=== PATIENT | male | born 1965 | race Caucasian/White ===

== ENCOUNTER 2017-06-03 16:13 | Observation (INO) | payer OTHER ==
[2017-06-03 18:54] VITALS: RESP 18
[2017-06-03] MEDS ORDERED: SODIUM CHLORIDE 0.9% 1,000 ML IV SCH (19:45)
--- NOTE | 2017-06-03 20:52 | CT ---
EXAMINATION TYPE: CT brain wo con DATE OF EXAM: 06/03/2017 COMPARISON: NONE HISTORY: LUMP TO POSTERIOR HEAD AREA. CT DLP: 991.[address] of the brain was performed. The ventricles, basal cisterns and sulci overlying the cerebral convexities demonstrate mild enlargem ent. There is no evidence for intracranial hemorrhage or sulcal effacement. There is decreased attenuation about the periventricular white matter and deep white matter of both c erebral hemispheres, compatible with chronic small vessel ischemia. Differential diagnosis does inclu de demyelination. No mass effects are seen.No midline shift. Osseous calvarium is intact. Small nodule of to the left of midline occipital region measures approx imately 7 mm and may reflect a small lymph node. Prominent fat posterior neck could reflect lipoma. If symptoms persist consider MRI. IMPRESSION: 1. Age related atrophic and chronic small vessel ischemic change without acute intracranial process s een at this time.
[2017-06-03 20:58] LABS: Anion Gap 10 mmol/L; Blood Urea Nitrogen 19 mg/dL (9-20); Carbon Dioxide 28 mmol/L (22-30); Chloride 105 mmol/L (98-107); Glucose 88 mg/dL (74-99); Non-African American GFR(MDRD) >60 (>60 ml/min/1.73 sqM); Potassium 4.4 mmol/L (3.5-5.1); Sodium 143 mmol/L (137-145)
[2017-06-03 21:08] LABS: Basophils # (A) 0.1 k/uL (0-0.2); Basophils % (A) 1 %; CH 32.6; CHCM 34.4; Eosinophils # (A) 0.1 k/uL (0-0.7); Eosinophils % (A) 1 %; HCT 44.4 % (39.0-53.0); HDW 2.75; HGB 15.2 gm/dL (13.0-17.5); Luc # (Auto) 0.19; Luc % (Auto) 2; Lymphocytes # (A) 2.3 k/uL (1.0-4.8); Lymphocytes % (A) 23 %; MCH 32.6 pg (25.0-35.0); MCHC 34.2 g/dL (31.0-37.0); MCV 95.2 fL (80.0-100.0); Mean Platelet Volume 7.1; Monocytes # (A) 0.6 k/uL (0-1.0); Monocytes % (A) 6 %; Neutrophils # (A) 6.7 k/uL (1.3-7.7); Neutrophils % (A) 67 %; RBC 4.67 m/uL (4.30-5.90); RDW 13.1 % (11.5-15.5); WBC (Perox) 9.81
[2017-06-03] MEDS ORDERED: ALPRAZolam 0.5 MG TAB PO PRN (22:00)
[2017-06-03] MEDS ORDERED: HYDROcodone/APAP 10-325MG 1 EACH TAB PO PRN (22:00)
[2017-06-03] MEDS ORDERED: TRIAMCINOLONE 0.1% CREAM 80 GM TUBE TOPICAL PRN (22:18)
[2017-06-04 05:50] VITALS: BMI 40.2
[2017-06-04] MEDS ORDERED: LEVOTHYROXINE 100 MCG TAB PO SCH (07:30)
[2017-06-04 07:36] VITALS: BP 102/65; PULSE 63; TEMP 98.7
--- NOTE | 2017-06-04 07:45 | XR ---
EXAMINATION TYPE: XR chest 2V DATE OF EXAM: 06/03/2017 COMPARISON: NONE HISTORY: Shortness of breath TECHNIQUE: Frontal and lateral views of the chest are obtained. FINDINGS: Scattered senescent parenchymal changes noted. Hyperinflation compatible with COPD. No evidence for infiltrate. No evidence for atelectasis. Heart size is stable. Mediastinal structures are stable and grossly unremarkable. No evidence for hilar prominence. Degenerative changes dorsal spine. IMPRESSION: 1. No evidence for acute pulmonary disease.
[2017-06-04] MEDS ORDERED: ATENOLOL 25 MG TAB PO SCH (09:00)
[2017-06-04] MEDS ORDERED: valACYclovir 500 MG TAB PO SCH (09:00)
--- NOTE | 2017-06-04 10:53 | P.DS ---
Providers Date of admission: 06/03/17 18:40 Expected date of discharge: 06/04/17 Attending physician: Sumeet Nazario Consults: 06/03/17 19:46 Consult Physician Routine Consulting Provider: Estefania Jung Consult Reason/Comments: near syncope Do you want consulting provider notified?: Yes Primary care physician: [facility] Course: 52-year-old male who was directly admitted from Dr. Nazario's office on 06/03/2017. The patient states he was seen in Dr. Nazario's office and had a vague chief complaint of "just not feeling right". The patient states he was feeling slightly dizzy but did not experience syncope. He has a history of thyroid cancer and had his thyroid removed 18 months ago. He states his symptoms felt similar to when the date 18 months ago when he had thyroid cancer and wanted to get checked out. He also has a history of hypertension. A CAT scan of the brain was completed due to the patient complaining of a bump on the posterior aspect of his head. The results indicated age-related atrophic and chronic small vessel ischemic changes without acute intracranial process. A chest x-ray was completed which was unremarkable. A d-dimer was completed and was negative. It was noted in the computer that the patient's heart rate has been running in the 40s most of his hospital stay. Patient is currently sinus rhythm in the 60s and 70s per cardiac monitor. Patient has been prescribed atenolol 25 mg twice a day. Discussed this with Dr. Nazario who states to cut the patient's dose in half and to follow-up with him outpatient. DISCHARGE DIAGNOSIS: 1. History of essential hypertension 2. History of thyroid cancer with thyroidectomy 3. Dizziness, present on admission, unknown etiology, resolved. Patient to follow-up with Dr. Nazario outpatient 4. Degenerative Disc disease, chronic 5. Bradycardia, suspect due to beta-blockers. Will decrease dose of atenolol. The above impression and plan of care have been discussed and directed by signing physician. Vivian Silva, nurse practitioner, acting as scribe for signing physician. Patient Condition at Discharge: Stable Plan - Discharge Summary New Discharge Prescriptions: New Atenolol [Tenormin] 12.5 mg PO BID #60 dose Triamcinolone 0.1% Cream [Kenalog] 1 applic TOPICAL TID PRN #1 tube PRN Reason: Moderate To Severe Itching Continue Hydrocodone/Acetaminophen [Hydrocodone/Acetaminophen 10-325] 1 tab PO Q4-6H PRN PRN Reason: Pain ALPRAZolam 1 mg PO BID PRN PRN Reason: Anxiety valACYclovir HCL [Valtrex] 500 mg PO DAILY Levothyroxine Sodium [Synthroid] 200 mcg PO DAILY Discontinued Atenolol [Tenormin] 25 mg PO BID Discharge Medication List ALPRAZolam 1 mg PO BID PRN 02/27/14 [History] Hydrocodone/Acetaminophen [Hydrocodone/Acetaminophen 10-325] 1 tab PO Q4-6H PRN 02/27/14 [History] valACYclovir HCL [Valtrex] 500 mg PO DAILY 02/27/14 [History] Levothyroxine Sodium [Synthroid] 200 mcg PO DAILY 06/03/17 [History] Atenolol [Tenormin] 12.5 mg PO BID #60 dose 06/04/17 [Rx] Triamcinolone 0.1% Cream [Kenalog] 1 applic TOPICAL TID PRN #1 tube 06/04/17 [Rx ] Follow up Appointment(s)/Referral(s): Sumeet Nazario MD [Primary Care Provider] - 06/07/17 Discharge Disposition: HOME SELF-CARE
== END 2017-06-04 11:25 | disposition home or self-care (01) ==
LOC: 3OBS 18:40
PROVIDERS: ADMIT Family Medicine; ATTEND Family Medicine
DX: R42 Dizziness and giddiness (principal); R00.1 Bradycardia, unspecified; I10 Essential (primary) hypertension; R22.0 Localized swelling, mass and lump, head; Z85.850 Personal history of malignant neoplasm of thyroid
CPT/HCPCS: 85379; 84439; 84481; 80048; 84443; 84484; 85025; 71020; 70450; G0378 ×2; G0379

== ENCOUNTER → 2019-01-12 | Outpatient (CLI) | payer OTHER ==
--- NOTE | 2019-01-12 16:37 | XR ---
EXAMINATION TYPE: XR chest 2V DATE OF EXAM: 01/12/2019 COMPARISON: Prior chest x-ray 06/03/2017 HISTORY: Bronchospasm TECHNIQUE: Frontal and lateral views of the chest are obtained. FINDINGS: There are overlying cardiac leads. There is no focal air space opacity, pleural effusion, o r pneumothorax seen. The cardiac silhouette size is within normal limits. The osseous structures a re intact. Flowing anterior osteophytes with relative preservation of disc space in the thoracic spin e compatible with diffuse idiopathic skeletal hyperostosis. IMPRESSION: No acute cardiopulmonary process.
== END | disposition home or self-care (01) ==
LOC: RADXRMAIN 14:29
PROVIDERS: ATTEND Family Medicine
DX: J98.01 Acute bronchospasm (principal)
CPT/HCPCS: 71046

== ENCOUNTER → 2020-08-01 | Outpatient (CLI) | payer OTHER ==
[2020-08-01 15:54] LABS: Basophils # (A) 0.1 k/uL (0-0.2); Basophils % (A) 1 %; Eosinophils # (A) 0.2 k/uL (0-0.7); Eosinophils % (A) 2 %; HCT 46.7 % (39.0-53.0); HGB 15.2 gm/dL (13.0-17.5); Lymphocytes # (A) 1.6 k/uL (1.0-4.8); Lymphocytes % (A) 23 %; MCH 31.4 pg (25.0-35.0); MCHC 32.5 g/dL (31.0-37.0); MCV 96.5 fL (80.0-100.0); Mean Platelet Volume 7.2; Monocytes # (A) 0.4 k/uL (0-1.0); Monocytes % (A) 5 %; Neutrophils # (A) 4.6 k/uL (1.3-7.7); Neutrophils % (A) 67 %; Platelet Count 262 k/uL (150-450); RBC 4.84 m/uL (4.30-5.90); RDW 13.1 % (11.5-15.5); WBC 6.9 k/uL (3.8-10.6)
[2020-08-02 01:06] LABS: African American GFR (CKD) 88.4 (60.0-200.0); Albumin 4.3 g/dL (3.80-4.90); Albumin/Globulin Ratio 1.87 (1.60-3.17); Anion Gap 8.2 mmol/L (4.00-12.00); BUN/Creat Ratio 16.36 Ratio (12.00-20.00); Calcium 8.9 mg/dL (8.7-10.3); Carbon Dioxide 25.8 mmol/L (21.6-31.8); Globulin 2.3 g/dL (1.6-3.3); Non-African American GFR(CKD) 76.2 (60.0-200.0); Potassium 4.4 mmol/L (3.5-5.5); Total Bilirubin 0.6 mg/dL (0.2-1.2); Total Protein 6.6 g/dL (6.2-8.2)
[2020-08-02 01:34] LABS: Hepatitis A Antibody IgM Non-Reactive (Non-Reactive); Hepatitis B Core IgM Non-Reactive (Non-Reactive); Hepatitis B Surface Antigen Non-Reactive (Non-Reactive); Hepatitis C IgG Antibody Non-Reactive (Non-Reactive)
[2020-08-02 07:19] LABS: HIV 2 AB Non-Reactive (Non-Reactive); HIV AB P24 Non-Reactive (Non-Reactive); HIV P24 AG Non-Reactive (Non-Reactive)
== END | disposition home or self-care (01) ==
LOC: LABWHC1 14:48
PROVIDERS: ATTEND Physician Assistant
DX: L40.8 Other psoriasis (principal); K76.9 Liver disease, unspecified; Z11.4 Encounter for screening for human immunodeficiency virus [HIV]; Z11.1 Encounter for screening for respiratory tuberculosis; Z79.899 Other long term (current) drug therapy
CPT/HCPCS: 36415; 80053; 80074; 85025; 86480; 87390

== ENCOUNTER 2020-12-26 08:49 | Day surgery (SDC) | payer OTHER ==
[2020-12-24 14:39] VITALS: BMI 38.0
[~2020-12-26 08:49] MED LIST: LACTATED RINGERS 1,000 ML IV SCH
[2020-12-26 09:41] VITALS: RESP 16; TEMP 97.4
[2020-12-26] MEDS ORDERED: LIDOCAINE 1% (10MG/ML) FOR IV START INTRADERMA ONE (09:45)
[2020-12-26] MEDS ORDERED: PROPOFOL 10 MG/ML 20 ML VIAL IV ONE (10:14)
--- NOTE | 2020-12-26 10:21 | P.GSHP ---
History of Present Illness H&P Date: 12/26/20 Chief Complaint: Screening colonoscopy Is a 55-year-old male presents today for screening colonoscopy. Patient denies a significant GI complaints. Past Medical History Past Medical History: Cancer, Chest Pain / Angina, Hypertension, Skin Disorder, Sleep Apnea/CPAP/BIPAP, Thyroid Disorder Additional Past Medical History / Comment(s): GOUT, GENITAL HERPES, HAND TREMORS, LOWER BACK PAIN, DDD/bulging disks-back and neck; rashes; Peripheral Neuropathy. NO CPAP USED, graves disease, hx thyroid cancer, PSORIASIS History of Any Multi-Drug Resistant Organisms: None Reported Past Surgical History: Orthopedic Surgery Additional Past Surgical History / Comment(s): LT HAND MIDDLE FINGER , RT ANKLE , RT KNEE ARTHROSCOPY; LT THYROIDECTOMY, right thyroidectomy, Past Anesthesia/Blood Transfusion Reactions: Family History of Problems w/ Anesthesia, Motion Sickness, Postoperative Nausea & Vomiting (PONV) Additional Past Anesthesia/Blood Transfusion Reaction / Comment(s): PT HAS SEVERE PONV, "pounding headache"; BROTHER - PONV, had neck pain for "days" after last surgery Smoking Status: Never smoker - Past Family History Brother(s) Family Medical History: Myocardial Infarction ([place]) Medications and Allergies Home Medications Medication Instructions Recorded Confirmed Type ALPRAZolam 1 mg PO BID PRN 02/27/14 12/26/20 History Hydrocodone/Acetaminophen 1 tab PO BID 02/27/14 12/26/20 History [Hydrocodone/Acetaminophen 10-325] valACYclovir HCL [Valtrex] 500 mg PO DAILY 02/27/14 12/26/20 History Allopurinol [Zyloprim] 100 mg PO DAILY 12/24/20 12/26/20 History Levothyroxine Sodium [Synthroid] 175 mcg PO DAILY 12/24/20 12/26/20 History Metoprolol Tartrate [Lopressor] 25 mg PO BID 12/24/20 12/26/20 History Allergies Allergy/AdvReac Type Severity Reaction Status Date / Time No Known Allergies Allergy Verified 12/24/20 14:26 Surgical - Exam Vital Signs Temp Pulse Resp BP Pulse Ox 97.4 F L 90 16 145/85 97 12/26/20 09:35 12/26/20 09:35 12/26/20 09:35 12/26/20 09:35 12/26/20 09:35 - General well developed, well nourished, no distress - Eyes PERRL - ENT normal pinna - Neck no masses - Respiratory normal expansion - Cardiovascular Rhythm: regular - Abdomen Abdomen: soft, non tender Assessment and Plan Assessment: We'll perform screening colonoscopy
--- NOTE | 2020-12-26 10:45 | P.OP ---
Date of Procedure: 12/26/20 Preoperative Diagnosis: Screening colonoscopy Postoperative Diagnosis: Colon polyp Procedure(s) Performed: Colonoscopy Anesthesia: MAC Surgeon: Rashel Freedman Pathology: other (Colon polyps) Condition: stable Disposition: PACU Description of Procedure: The patient's placed on the endoscopy table in the lateral position. He received IV sedation. Digital rectal exam was performed which revealed no abnormalities. Flexible colonoscope was then placed patient anus passed throughout the entire colon. The ileocecal valve was visualized. In the cecum there was a small sessile polyp was removed the forcep. The scope was then brought back the remainder ascending colon appeared normal. The transverse colon was a large plug the polyp which was incompletely removed with snare. The area was tattooed. The scope was withdrawn the remainder of the transverse colon appeared normal. The descending colon and; appeared normal. Scope was brought back the rectum was normal. Scope was withdrawn for patient.
[2020-12-26] MEDS ORDERED: ONDANSETRON 4 MG/2 ML VIAL IVP ONE (10:47)
[2020-12-26] MEDS ORDERED: ONDANSETRON 4 MG/2 ML VIAL ONE (10:50)
[2020-12-26] MEDS ORDERED: LABETALOL 5 MG/ML VIAL MDV IVP ONE (11:29)
[2020-12-26 11:44] VITALS: PULSE 65
[2020-12-26 11:51] VITALS: BP 133/79
== END 2020-12-26 11:59 | disposition home or self-care (01) ==
LOC: ORWHC2ENDO 08:49
PROVIDERS: ATTEND Surgery
DX: Z12.11 Encounter for screening for malignant neoplasm of colon (principal); D12.0 Benign neoplasm of cecum; D12.3 Benign neoplasm of transverse colon; I10 Essential (primary) hypertension; E05.00 Thyrotoxicosis with diffuse goiter without thyrotoxic crisis or storm; G47.30 Sleep apnea, unspecified; Z79.890 Hormone replacement therapy; Z79.899 Other long term (current) drug therapy; Z82.49 Family history of ischemic heart disease and other diseases of the circulatory system; Z85.850 Personal history of malignant neoplasm of thyroid
CPT/HCPCS: 88305; 45380; 45385; 45381; J2405; J2704

== ENCOUNTER 2021-02-14 07:56 | Day surgery (SDC) | payer OTHER ==
[2021-02-12 14:45] VITALS: BMI 41.2
[2021-02-14] MEDS ORDERED: ONDANSETRON 4 MG/2 ML VIAL ONE (08:17)
[2021-02-14 08:22] VITALS: RESP 16; TEMP 97.2
[2021-02-14] MEDS ORDERED: LIDOCAINE 1% (10MG/ML) FOR IV START INTRADERMA ONE (08:26)
[2021-02-14] MEDS ORDERED: PROPOFOL 10 MG/ML 20 ML VIAL IV ONE (09:11)
[2021-02-14] MEDS ORDERED: GLUCAGON 1 MG/ML VIAL ONE (09:11)
--- NOTE | 2021-02-14 09:12 | P.GSHP ---
History of Present Illness H&P Date: 02/14/21 Chief Complaint: History of colon polyp This a 56-year-old male who presents today for colonoscopy. Patient's previous history of colon polyps. Past Medical History Past Medical History: Cancer, Chest Pain / Angina, Hypertension, Skin Disorder, Sleep Apnea/CPAP/BIPAP, Thyroid Disorder Additional Past Medical History / Comment(s): GOUT, GENITAL HERPES, HAND TREMORS, LOWER BACK PAIN, DDD/bulging disks-back and neck; rashes; Peripheral Neuropathy. NO CPAP USED, graves disease, hx thyroid cancer, PSORIASIS History of Any Multi-Drug Resistant Organisms: None Reported Past Surgical History: Orthopedic Surgery Additional Past Surgical History / Comment(s): LT HAND MIDDLE FINGER , RT ANKLE , RT KNEE ARTHROSCOPY; LT THYROIDECTOMY, right thyroidectomy, colonoscopy Past Anesthesia/Blood Transfusion Reactions: Family History of Problems w/ Anesthesia, Motion Sickness, Postoperative Nausea & Vomiting (PONV) Additional Past Anesthesia/Blood Transfusion Reaction / Comment(s): after last colonoscopy on 12-26-20 had low b/p post op.PT HAS SEVERE PONV, "pounding headache"; BROTHER - PONV, had neck pain for "days" after last surgery Smoking Status: Never smoker - Past Family History Brother(s) Family Medical History: Myocardial Infarction ([place]) Medications and Allergies Home Medications Medication Instructions Recorded Confirmed Type ALPRAZolam 1 mg PO BID PRN 02/27/14 02/14/21 History Hydrocodone/Acetaminophen 1 tab PO BID 02/27/14 02/14/21 History [Hydrocodone/Acetaminophen 10-325] valACYclovir HCL [Valtrex] 500 mg PO DAILY 02/27/14 02/14/21 History Allopurinol [Zyloprim] 100 mg PO DAILY 12/24/20 02/14/21 History Levothyroxine Sodium [Synthroid] 175 mcg PO DAILY 12/24/20 02/14/21 History Metoprolol Tartrate [Lopressor] 25 mg PO BID 12/24/20 02/14/21 History Risankizumab-Rzaa [Skyrizi] 75 mg SQ ONCE 02/12/21 02/14/21 History Allergies Allergy/AdvReac Type Severity Reaction Status Date / Time No Known Allergies Allergy Verified 02/12/21 14:36 Surgical - Exam Vital Signs Temp Resp BP Pulse Ox 97.2 F L 16 188/102 97 05/07/21 08:14 02/14/21 08:14 02/14/21 08:14 02/14/21 08:14 - General well developed, well nourished, no distress - Eyes PERRL - ENT normal pinna - Neck no masses - Respiratory normal expansion - Cardiovascular Rhythm: regular - Abdomen Abdomen: soft, non tender Assessment and Plan Assessment: History of colon polyps. We'll perform colonoscopy
[2021-02-14 09:40] VITALS: BP 116/84; PULSE 90
--- NOTE | 2021-02-14 09:40 | P.OP ---
Date of Procedure: 02/14/21 Preoperative Diagnosis: History of colon polyps Postoperative Diagnosis: Multiple colon polyps Procedure(s) Performed: Colonoscopy Anesthesia: MAC Surgeon: Rashel Freedman Pathology: other (Rectal polyp, sigmoid colon polyp, transverse colon polyp) Condition: stable Disposition: PACU Description of Procedure: The patient's placed on the endoscopy table in the lateral position. He received IV sedation. Digital rectal exam was performed. There were no abnormalities noted. The prostate was symmetric without nodules. The flexible colonoscope was then placed patient anus and passed throughout the entire colon. The ileocecal valve was visualized. The cecum appeared normal. In the transverse colon there was evidence of previous tattoo. It was a polyp seen this is removed completely with snare. Scope was withdrawn and the remainder the transverse colon and descending colon appeared normal. In the sigmoid colon small polyp seen this removed with the cold forcep. Scope was brought back the rectum another polyp seen this removed with snare. Patient top she will was sent to recovery room in this.
== END 2021-02-14 10:16 | disposition home or self-care (01) ==
LOC: ORWHC2ENDO 07:56
PROVIDERS: ATTEND Surgery
DX: Z12.11 Encounter for screening for malignant neoplasm of colon (principal); D12.3 Benign neoplasm of transverse colon; K63.5 Polyp of colon; Z86.010 Personal history of colon polyps; I10 Essential (primary) hypertension; E07.9 Disorder of thyroid, unspecified; Z79.899 Other long term (current) drug therapy; G47.33 Obstructive sleep apnea (adult) (pediatric); M10.9 Gout, unspecified; R25.1 Tremor, unspecified; L40.9 Psoriasis, unspecified; G62.9 Polyneuropathy, unspecified; E05.00 Thyrotoxicosis with diffuse goiter without thyrotoxic crisis or storm; E89.0 Postprocedural hypothyroidism; Z98.890 Other specified postprocedural states; M54.5 Low back pain; M50.30 Other cervical disc degeneration, unspecified cervical region; M50.20 Other cervical disc displacement, unspecified cervical region; Z82.49 Family history of ischemic heart disease and other diseases of the circulatory system; Z86.19 Personal history of other infectious and parasitic diseases; Z79.890 Hormone replacement therapy
CPT/HCPCS: 88305; 45380; 45385; J1610; J2405; J2704

== ENCOUNTER 2022-02-18 16:16 | Emergency (ER) | payer OTHER ==
[2022-02-18 16:40] VITALS: RESP 16; TEMP 98.1
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
[2022-02-18 17:50] LABS: Basophils # (A) 0.1 k/uL (0-0.2); Basophils % (A) 1 %; Eosinophils # (A) 0.3 k/uL (0-0.7); Eosinophils % (A) 4 %; HCT 43.8 % (39.0-53.0); HGB 13.9 gm/dL (13.0-17.5); Lymphocytes % (A) 11 %; MCH 31.2 pg (25.0-35.0); MCHC 31.7 g/dL (31.0-37.0); MCV 98.4 fL (80.0-100.0); Mean Platelet Volume 7.8; Monocytes # (A) 0.5 k/uL (0-1.0); Monocytes % (A) 5 %; Neutrophils # (A) 7.5 k/uL (1.3-7.7); Neutrophils % (A) 78 %; Platelet Count 264 k/uL (150-450); RBC 4.45 m/uL (4.30-5.90); RDW 13.9 % (11.5-15.5); WBC 9.5 k/uL (3.8-10.6)
[2022-02-18 17:58] LABS: Partial Thromboplastin Time 24.7 sec (22.0-30.0); Prothrombin Time 10.8 sec (9.0-12.0)
[2022-02-18 18:00] LABS: ALT 31 U/L (4-49); AST 36 U/L (17-59); African American GFR (CKD) >90 (>60 ml/min/1.73 sqM); Alcohol <10 mg/dL; Alkaline Phosphatase 45 U/L (38-126); Anion Gap 7 mmol/L; Blood Urea Nitrogen 20 mg/dL (9-20); Calcium 8.7 mg/dL (8.4-10.2); Carbon Dioxide 25 mmol/L (22-30); Chloride 111 mmol/L (98-107); Glucose 99 mg/dL (74-99); Non-African American GFR(CKD) 84 (>60 ml/min/1.73 sqM); Potassium 4.9 mmol/L (3.5-5.1); Sodium 143 mmol/L (137-145); Total Bilirubin 0.5 mg/dL (0.2-1.3); Total Protein 6.4 g/dL (6.3-8.2)
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
[2022-02-18 20:57] VITALS: BP 124/82; PULSE 53
== END 2022-02-18 20:57 | disposition home or self-care (01) ==
LOC: EC 16:16
DX: F11.10 Opioid abuse, uncomplicated (principal); I10 Essential (primary) hypertension; E07.9 Disorder of thyroid, unspecified; Z79.1 Long term (current) use of non-steroidal anti-inflammatories (NSAID); Z82.49 Family history of ischemic heart disease and other diseases of the circulatory system; V89.2XXA Person injured in unspecified motor-vehicle accident, traffic, initial encounter
CPT/HCPCS: 36415; 93005; 86900; 86901; 80053; 84484; 85025; 85610; 85730; 86850; 72170; 71045; 99285; G0480; 80320

== ENCOUNTER → 2022-03-19 | Outpatient (CLI) | payer OTHER ==
--- NOTE | 2022-03-20 16:49 | US ---
EXAMINATION TYPE: US thyroid st tissue head/neck DATE OF EXAM: 03/19/2022 COMPARISON: CT CLINICAL HISTORY: C73 Thyroid Cancer. Hx thyroid cancer. Thyroidectomy. Scanned patient's thyroid bed. Indistinct, hypoechoic area seen in the area of the left thyroid bed measuring 0.9 x 0.6 x 0.4 cm. Bilateral neck scanned, Hypoechoic area seen midline neck: 1.3 x 0.8 x 0.3 cm. IMPRESSION: No discrete suspicious mass within the thyroid beds. A small hypoechoic area is in the midline discus sed above. Consider nuclear medicine thyroid scan correlation. Recurrence or residual thyroid tissue is not excluded.
== END | disposition home or self-care (01) ==
LOC: RADUSWWP 16:14
PROVIDERS: ATTEND Family Medicine
DX: C73 Malignant neoplasm of thyroid gland (principal)
CPT/HCPCS: 76536

== ENCOUNTER → 2022-05-05 | Outpatient (CLI) | payer OTHER ==
--- NOTE | 2022-05-05 12:20 | NM ---
EXAMINATION TYPE: NM thyroid image only DATE OF EXAM: 05/05/2022 COMPARISON: Thyroid ultrasound 03/19/2022 HISTORY: Thyroid cancer, R 94.6 TECHNIQUE: After the intravenous administration of 10.5 mCi Tc 99m Sodium Pertechnetate. FINDINGS: Within the lower aspect of the thyroid bed on the left there is uptake of radiopharmaceutical corresp onding to the abnormal focus seen on ultrasound. The right lobe is not visualized. Remainder of the l eft lobe not visualized. IMPRESSION: Findings may represent local recurrence
== END | disposition home or self-care (01) ==
LOC: RADNMMAIN 09:01
PROVIDERS: ATTEND Family Medicine
DX: C73 Malignant neoplasm of thyroid gland (principal); R94.6 Abnormal results of thyroid function studies
CPT/HCPCS: 78013; A9512